=== PATIENT | female | born 1940 | race African-American/Black ===

== ENCOUNTER → 2016-12-11 | Outpatient (CLI) | payer MEDICARE ==
--- NOTE | 2016-12-11 11:26 | KCIC ---
PROCEDURE CT chest without contrast. HISTORY Emphysema. Granulomatous disease on previous CT. Smoker. TECHNIQUE Helical CT imaging of the chest is performed without IV contrast. PQRS: One or more the following individualized dose reduction techniques were utilized for the study: 1. Automated exposure control. 2. Adjustment of the mA and/or kV according to patient size. 3. Use of iterative reconstruction technique. COMPARISON CT chest without contrast April 23, 2014. FINDINGS There is no adenopathy in the chest. Limited evaluation of the siri without IV contrast. There are calcified right hilar lymph nodes. The great vessels are stable. Cardiac size normal, no pericardial effusion. There is no pleural effusion. The central airways are patent. There is minimal upper lobe centrilobular emphysema. Calcified granuloma superior segment right lower lobe. No suspicious pulmonary nodule. No lung consolidation. Cholecystectomy. Cortical scarring upper pole of left kidney. No compression fracture in the thoracic spine. IMPRESSION No acute cardiopulmonary process. Electronically signed by: Te Cerda MD (Dec 11, 2016 11:25:57)
== END | disposition home or self-care (01) ==
LOC: KCIC CT 10:36
PROVIDERS: ATTEND Family Medicine
DX: J43.9 Emphysema, unspecified (principal); D71 Functional disorders of polymorphonuclear neutrophils; I10 Essential (primary) hypertension; E11.9 Type 2 diabetes mellitus without complications
CPT/HCPCS: 71250

== ENCOUNTER → 2018-05-05 | Outpatient (CLI) | payer MEDICARE ==
--- NOTE | 2018-05-05 11:26 | KCIC ---
CT chest without contrast dated 05/05/2018. No comparison available. Clinical data indication: 50+ pack year history of tobacco use. Shortness of breath. Lung cancer screening. TECHNIQUE: Contiguous axial imaging the chest performed without the administration of intravenous contrast. Study was performed using low-dose lung cancer screening protocol with thin cut coronal and axial reconstruction. One or more of the following individualized dose reduction techniques were utilized for this examination: 1. Automated exposure control 2. Adjustment of the mA and/or kV according to patient size 3. Use of iterative reconstruction technique FINDINGS: Heart size within normal limits. No pericardial effusion. There is a borderline enlarged subcarinal lymph node measures up to 10 mm short axis. Otherwise, no mediastinal, hilar or axillary lymphadenopathy. There are calcified right hilar lymph nodes. Thyroid gland is unremarkable. Central airways are patent. Mild to moderate upper zone predominant centrilobular emphysema. Calcified granuloma superior segment right lower lobe. No suspicious pulmonary nodule or mass. No pleural effusion. Some linear scarring at the left base. Images of the upper abdomen unremarkable. There are some cortical scarring at the midpole left kidney. Gallbladder surgically absent. Bone windows show no acute findings. Mild multilevel spondylosis. IMPRESSION: 1. No suspicious pulmonary nodule or mass. Recommend follow-up low-dose lung cancer screening study in one year lung RADS category 1. 2. Mild to moderate emphysema. 3. Old granulomatous disease. 4. Borderline enlarged subcarinal lymph node, nonspecific. Electronically signed by: Carlos Enrique Gagnon MD (05/05/2018 11:23 AM) [id number]
== END | disposition home or self-care (01) ==
LOC: KCIC CT 10:23
PROVIDERS: ATTEND Family Medicine
DX: Z12.2 Encounter for screening for malignant neoplasm of respiratory organs (principal); J43.2 Centrilobular emphysema; M47.894 Other spondylosis, thoracic region; D71 Functional disorders of polymorphonuclear neutrophils; I10 Essential (primary) hypertension; E11.9 Type 2 diabetes mellitus without complications; F17.218 Nicotine dependence, cigarettes, with other nicotine-induced disorders
CPT/HCPCS: G0297

== ENCOUNTER → 2018-08-29 | Outpatient (CLI) | payer MEDICARE ==
--- NOTE | 2018-08-29 16:50 | KCIC ---
Five-view cervical spine series Clinical indications: Neck pain. Left upper stomach pain and numbness. Progressing for years. FINDINGS: No acute fracture or discitis or osteolytic process prevertebral soft tissue swelling is evident. There is minimal grade 1 anterolisthesis of C4-5 and C7-T1. Degenerative facet arthropathy seen throughout the cervical spine. There is no significant disc space narrowing. There is mild degenerative endplate spurring at C3-4 and C4-5 and C5-6. There is moderate degenerative endplate spurring at 617. Mild narrowing of the right neural foramina at C4-5 and C5-6 and C6-7 is mild narrowing of the left C5-6 neural foramen. IMPRESSION: Mild degenerative cervical spondylosis. 3 view left knee study: Left knee pain since March 2018 after a fall. Pain is located medially. Left knee instability. FINDINGS: No acute fracture or dislocation or osteolytic process is evident. There is moderate to severe degenerative joint space narrowing and spurring of the medial tibial femoral joint compartment. There is mild spurring and joint space narrowing of the lateral tibial femoral joint compartment. Moderate spurring and mild joint space narrowing of the patellofemoral joint compartment is seen. Small left knee joint effusion is seen. IMPRESSION: Tricompartmental primary degenerative osteoarthritis most severely involving the medial tibial femoral joint compartment of the left knee. Electronically signed by: Gary Ragsdale MD (08/29/2018 4:46 PM) [facility]
== END | disposition home or self-care (01) ==
LOC: KCIC 09:56
PROVIDERS: ATTEND Family Medicine
DX: M17.12 Unilateral primary osteoarthritis, left knee (principal); M25.462 Effusion, left knee; M47.892 Other spondylosis, cervical region; M48.02 Spinal stenosis, cervical region; M25.362 Other instability, left knee
CPT/HCPCS: 72050; 73562